=== PATIENT | female | born 1945 | race Caucasian/White ===

== ENCOUNTER 2016-08-18 14:41 | Emergency (ER) | payer OTHER ==
[~2016-08-18] VITALS: Ht 167.6 cm; Wt 99.3 kg
[2016-08-18 14:44] VITALS: TEMP 36.4; Ht 167.6 cm; Wt 99.3 kg
[2016-08-18] MEDS ORDERED: SODIUM CHLORIDE 0.9% 500ML 500 ML IV STA (14:59)
[2016-08-18] MEDS ORDERED: OMEG10007 PO (15:36)
[2016-08-18] MEDS ORDERED: METF-384 PO (15:36)
[2016-08-18] MEDS ORDERED: GLIM4TAB PO (15:36)
[2016-08-18] MEDS ORDERED: COEN100C11 PO (15:36)
[2016-08-18] MEDS ORDERED: CHOL1000 PO (15:36)
[2016-08-18] MEDS ORDERED: BUPR-267 PO (15:36)
[2016-08-18] MEDS ORDERED: ATOR10TA82 PO (15:36)
[2016-08-18] MEDS ORDERED: METO25TA3 PO (15:36)
[2016-08-18] MEDS ORDERED: SITA100T3 PO (15:36)
[2016-08-18] MEDS ORDERED: FEXO1TAB58 PO (15:36)
[2016-08-18] MEDS ORDERED: OMEP40CA41 PO (15:36)
[2016-08-18 15:37] LABS: BASO % 0.6 %; BASO ABS # 0.05 K/uL (0-0.2); COMPLETE YES; EOS % 0.9 %; HEMATOCRIT 41.7 % (37-47); IG% 0.1 %; LYMPH % 11.6 %; LYMPH ABS # 1.01 K/uL (1.2-3.4); MEAN CELL VOLUME 84.4 fL (80-100); MEAN CORPUSCULAR HEMOGLOBIN 28.1 pg (25-34); MEAN CORPUSCULAR HGB CONC 33.3 g/dl (32-36); MEAN PLATELET VOLUME 10.8 fL (7.4-10.4); NEUT % 82.8 %; PLATELET COUNT 345 K/uL (130-400); RED BLOOD COUNT 4.94 M/uL (4.2-5.4)
[2016-08-18] MEDS ORDERED: FRS/40 PO (15:38)
[2016-08-18 15:46] LABS: PROTHROMBIN TIME (PATIENT) 10.8 SECONDS (9.0-12.0)
[2016-08-18 15:51] LABS: URINE APPEARANCE CLEAR (CLEAR); URINE BILIRUBIN NEG (NEG); URINE COLOR YELLOW; URINE NITRITE NEG (NEG); UROBILINOGEN NEG (NEG)
[2016-08-18 15:54] LABS: MANUAL MICROSCOPIC REQUIRED? NO; REVIEW REQ? NO
[2016-08-18 15:58] LABS: BUN/CREATININE RATIO 11.3 (10-20); CALCIUM 9.1 mg/dl (8.5-10.1); CREATININE 0.91 mg/dl (0.60-1.20); POTASSIUM 3.4 mmol/L (3.5-5.1)
[2016-08-18 16:47] VITALS: BP 144/91; PULSE 88; O2SAT 97
--- NOTE | 2016-08-18 20:01 | EMERGENCY ROOM VISIT NOTE ---
History Report prepared by Miquel: Zoraida Arias Under the Supervision of: Dr. Edward Holley M.D. First contact with patient: 14:53 Chief Complaint: OTHER COMPLAINT Stated Complaint: SHAKEY, CLAMMY, SWEATING History of Present Illness The patient is a 70 year old female who presents to the Emergency Room with complaints of shakiness beginning this morning. The patient reports that she was feeling nauseous and began to sweat. She also complains of fatigue. The patient is diabetic, and she states that she often gets dehydrated in the summer. After eating a muffin, she checked her blood sugar and it was 61. She then proceeded to eat more food and is feeling better. The patient states that she no longer feels nauseated, but still feels a little shaky. She denies having a fever, chest pain, and shortness of breath. She does take Lasix and took some today. Source of History: patient Onset: this morning Position: other (global) Quality: other (shakiness ) Modifying Factors (Worsening): eating Associated Symptoms: + diaphoresis, + nausea, No fevers, No chest pain, No SOB Review of Systems See HPI for pertinent positives & negatives. A total of 10 systems reviewed and were otherwise negative. Past Medical & Surgical Medical Problems: (1) Diabetes mellitus Family History No pertinent family history stated. Social History Smoking Status: Former Smoker Marital Status: Current/Historical Medications Scheduled Atorvastatin (Lipitor), 10 MG PO DAILY Bupropion Hcl (Bupropion Hcl Er), 150 MG PO BID Cholecalciferol (Vitamin D3), 1 TAB PO DAILY Coenzyme Q10 (Ubidecarenone) (Coq-10), 100 MG PO DAILY Fexofenadine-Pseudoephedrine (Adriana-D 24 Hour Allergy), 1 TAB PO DAILY Fish Oil ([place]-3), 1 CAP PO DAILY Furosemide (Lasix), 40 MG PO DAILY Glimepiride (Amaryl), 4 MG PO DAILY Metformin Hcl (Glucophage), 1,000 MG PO BID Metoprolol Succinate (Toprol Xl), 25 MG PO DAILY Omeprazole (Prilosec), 40 MG PO DAILY Sitagliptin Phosphate (Januvia), 50 MG PO DAILY Allergies Coded Allergies: Penicillins (Verified Allergy, Severe, RASH, 08/18/16) Pneumococcal Vaccine (Verified Allergy, Severe, RASH/GI SYMPTOMS, 08/18/16) Statins (Verified Allergy, Severe, RASH, SWEAT, MUSCLE CRAMPS, 08/18/16) Pioglitazone (Verified Allergy, Intermediate, RASH, 08/18/16) Diclofenac (Verified Allergy, Unknown, UNKNOWN, 08/18/16) Latex (Verified Allergy, Unknown, UNKNOWN, 08/18/16) Misoprostol (Verified Allergy, Unknown, UNKNOWN, 08/18/16) Naproxen (Verified Allergy, Unknown, UNKNOWN, 08/18/16) Uncoded Allergies: BLEACH (Allergy, Severe, RASH, SOB, 08/18/16) FLU SHOT (Allergy, Severe, ARM SWELLED, RED, 08/18/16) Physical Exam Vital Signs Date Time Temp Pulse Resp B/P (MAP) Pulse Ox O2 Delivery O2 Flow Rate FiO2 08/18/16 16:47 88 20 144/91 97 Room Air 08/18/16 15:58 88 20 186/93 96 Room Air 08/18/16 15:33 92 08/18/16 14:44 36.4 96 18 173/85 95 Room Air Physical Exam Constitutional: Vital signs reviewed. Eyes: Pupils are equal round reactive to light. Conjunctiva are noninjected. ENT: Pharynx is clear without erythema or exudate. Mucous membranes are dry. No evidence of dry socket or gingival infection. Neck supple without meningeal signs. Respiratory: Clear to auscultation bilaterally. Breath sounds are equal bilaterally. Cardiovascular: Regular rate and rhythm. No rubs or gallops. GI: Soft, nondistended and nontender. Bowel sounds are present. Musculoskeletal: Mild ankle edema. Open left foot between the first and second toes without cellulitis. Tenderness and swelling to the right second toe secondary to a fracture she sustained one half weeks ago. Integumentary: No cyanosis. Neurological: The patient is awake and alert. No focal deficits. Psychiatric: Anxious. Medical Decision & Procedures Laboratory Results 08/18/16 15:20 Red Blood Count 4.94, Mean Corpuscular Volume 84.4, Mean Corpuscular Hemoglobin 28.1, Mean Corpuscular Hemoglobin Concent 33.3, Mean Platelet Volume 10.8, Neutrophils (%) (Auto) 82.8, Lymphocytes (%) (Auto) 11.6, Monocytes (%) (Auto) 4.0, Eosinophils (%) (Auto) 0.9, Basophils (%) (Auto) 0.6, Neutrophils # (Auto) 7.20, Lymphocytes # (Auto) 1.01, Monocytes # (Auto) 0.35, Eosinophils # (Auto) 0.08, Basophils # (Auto) 0.05 08/18/16 15:20 Test 08/18/16 15:00 08/18/16 15:20 08/18/16 15:28 Urine Color YELLOW Urine Appearance CLEAR (CLEAR) Urine pH 5.0 (4.5-7.5) Urine Specific [place] 1.010 (1.000-1.030) Urine Protein NEG (NEG) Urine Glucose (UA) NEG (NEG) Urine Ketones NEG (NEG) Urine Occult Blood NEG (NEG) Urine Nitrite NEG (NEG) Urine Bilirubin NEG (NEG) Urine Urobilinogen NEG (NEG) Urine Leukocyte Esterase NEG (NEG) White Blood Count 8.70 K/uL (4.8-10.8) Red Blood Count 4.94 M/uL (4.2-5.4) Hemoglobin 13.9 g/dL (12.0-16.0) Hematocrit 41.7 % (37-47) Mean Corpuscular Volume 84.4 fL (80-100) Mean Corpuscular Hemoglobin 28.1 pg (25-34) Mean Corpuscular Hemoglobin Concent 33.3 g/dl (32-36) Platelet Count 345 K/uL (130-400) Mean Platelet Volume 10.8 fL (7.4-10.4) Neutrophils (%) (Auto) 82.8 % Lymphocytes (%) (Auto) 11.6 % Monocytes (%) (Auto) 4.0 % Eosinophils (%) (Auto) 0.9 % Basophils (%) (Auto) 0.6 % Neutrophils # (Auto) 7.20 K/uL (1.4-6.5) Lymphocytes # (Auto) 1.01 K/uL (1.2-3.4) Monocytes # (Auto) 0.35 K/uL (0.11-0.59) Eosinophils # (Auto) 0.08 K/uL (0-0.5) Basophils # (Auto) 0.05 K/uL (0-0.2) RDW Standard Deviation 41.0 fL (36.4-46.3) RDW Coefficient of Variation 13.3 % (11.5-14.5) Immature Granulocyte % (Auto) 0.1 % Immature Granulocyte # (Auto) 0.01 K/uL (0.00-0.02) Prothrombin Time 10.8 SECONDS (9.0-12.0) Prothromb Time International Ratio 1.0 (0.9-1.1) Activated Partial Thromboplast Time 25.5 SECONDS (21.0-31.0) Partial Thromboplastin Ratio 1.0 Anion Gap 14.0 mmol/L (3-11) Est Creatinine Clear Calc Drug Dose 66.4 ml/min Estimated GFR () 73.1 Estimated GFR (Non- 63.0 BUN/Creatinine Ratio 11.3 (10-20) Calcium Level 9.1 mg/dl (8.5-10.1) Total Bilirubin 0.5 mg/dl (0.2-1) Direct Bilirubin 0.2 mg/dl (0-0.2) Aspartate Amino Transf (AST/SGOT) 19 U/L (15-37) Alanine Aminotransferase (ALT/SGPT) 28 U/L (12-78) Alkaline Phosphatase 122 U/L (45-117) Total Protein 8.0 gm/dl (6.4-8.2) Albumin 3.5 gm/dl (3.4-5.0) Bedside Troponin I < 0.030 ng/ml (0-0.045) Laboratory results as reviewed by me. Medications Administered Medications (Trade) Dose Ordered Sig/Meet Route Start Time Stop Time Status Last Admin Dose Admin Sodium Chloride 500 ml @ 999 mls/hr Q31M STAT IV 08/18/16 14:59 08/18/16 15:29 DC 08/18/16 14:59 999 MLS/HR ECG Indication: other (shakiness) Rate (beats per minute): 93 Rhythm: normal sinus Findings: RBBB, no ectopy, other (no old ECG for comparison) ED Course 1454: The patient was evaluated in room B3. A complete history and physical exam was performed. 1459: Ordered Sodium Chloride 500 ml @ 999 mls/hr IV. 1602: I discussed the results with the patient. 1606: Upon reevaluation, the patient appeared to have improvement of her symptoms. I discussed tonight's findings with her. She verbalized agreement of the treatment plan. She was discharged home. Medical Decision this is a 70-year-old female presents with nausea and shakiness. Differential diagnosis includes hypoglycemia, metabolic derangement, dehydration, anxiety, infection. I did perform a limited focused review of portions of the patient's old chart on the electronic medical record. The patient has had no prior visit to this hospital. Blood Pressure Screening: Patient was found to have an elevated blood pressure and was referred to their primary doctor for recheck and further treatment. Medication Reconciliation: I attest that I have personally reviewed the patient' s current medication list. I did evaluate the patient as noted above. The patient is presenting with an episode of feeling nauseous and very shaky and sweaty. She ate a muffin and subsequently took her blood sugar and it was 61. She ate some more and now feels much better although somewhat shaky. Her symptoms seem most consistent with hypoglycemia. She also feels dehydrated and was given a liter normal saline IV. The patient was placed on a continuous panel monitor. I did order and personally review the patient's 12-lead EKG as described above. I did order and review the patient's blood work as noted in the electronic medical record. Her blood sugar is 244. She has mild hypokalemia. I did discuss the test results with the patient. She is feeling better at this time. She has no complaints. She does note that she broke her right toe a week and a half ago and it is still somewhat red and painful. She also was wearing flip- flops and developed a blister between her left great toe and second toe. There is no evidence of cellulitis to the foot. She has a slight rash to her left leg below the knee but she states developed after she leaned her leg on the sofa while she was sleeping. It does not appear to be an infectious process. She is currently on clindamycin for her dental issues. She will continue the clindamycin. I did recommend eating regular meals. She was advised also closely monitor her blood sugars. She was discharged in good condition and will follow up with her doctor in [place]. Impression Primary Impression: Hypoglycemia Additional Impression: Dehydration Scribe Attestation The scribe's documentation has been prepared under my direct and personally reviewed by me in its entirety. I confirm that the note above accurately reflects all work, treatment, procedures, and medical decision making performed by me. Departure Information Dispostion Home / Self-Care Referrals No Doctor, Assigned (PCP) Forms HOME CARE DOCUMENTATION FORM, IMPORTANT VISIT INFORMATION, WORK / SCHOOL INSTRUCTIONS Patient Instructions ED Diabetes Hypoglycemia Oral Agent, My [facility] Additional Instructions You have been examined and treated today on an emergency basis only. This is not a substitute for, or an effort to provide, complete comprehensive medical care. It is impossible to recognize and treat all injuries or illnesses in a single emergency department visit. It is therefore important that you follow up closely with your physician. Call as soon as possible for an appointment. Return for worsening symptoms or if you develop fever, vomiting, chest pain, shortness of breath or any other concerning symptoms. Keep your feet clean and apply bacitracin ointment to your wounds twice a day. Problem Qualifiers
== END 2016-08-18 16:58 | disposition home or self-care (01) ==
LOC: C.EDB 14:43
DX: E11.649 Type 2 diabetes mellitus with hypoglycemia without coma (principal); E86.0 Dehydration; Z79.84 Long term (current) use of oral hypoglycemic drugs